=== PATIENT | male | born 1960 | race Caucasian/White ===

== ENCOUNTER 2018-12-01 09:03 | Emergency (ER) | payer OTHER ==
[2018-12-01] MEDS ORDERED: ONDANSETRON 4 MG/2 ML VIAL IVP STA (09:16)
[2018-12-01] MEDS ORDERED: KETOROLAC 30 MG/ML VIAL IVP STA (09:16)
[2018-12-01] MEDS ORDERED: SODIUM CHLORIDE 0.9% 1,000 ML IV ONE ×2 (09:16→11:15)
--- NOTE | 2018-12-01 09:17 | ED Physician Documentation ---
History of Present Illness - Stated complaint Stated Complaint: ABD PX/SIDE PX - Chief complaint Chief Complaint: Abd Pain - Additonal information Additional information: hx from pt 58 male to ED with acute onset severe L flank pain rad to LLQ and scrotum dec urine output nauseated no fever otherwise healthy no pmhx no meds no allergies Review of Systems Constitutional: denies: Fever Cardiac: denies: Chest pain / pressure Respiratory: denies: Dyspnea GI: reports: Abdominal Pain, Nausea : reports: Hesitancy Musculoskeletal: reports: Back pain Endocrine: denies: Easy bruising / bleeding Immunocompromised: denies: Immunocompromised PD PAST MEDICAL HISTORY - Present Medications Home Medications: Ambulatory Orders Medication Instructions Recorded Confirmed Hydrocodone/Acetaminophen 1 each PO Q6H PRN #10 tablet 12/01/18 [Hydrocodon-Acetaminophen 5-325] Ibuprofen [Motrin] 400 mg PO Q6H #30 tablet 12/01/18 Ondansetron Odt [Zofran] 4 mg TL Q6H PRN #10 tablet 12/01/18 Tamsulosin HCl [Flomax] 0.4 mg PO DAILY #7 cap 12/01/18 - Allergies Allergies/Adverse Reactions: Allergies Allergy/AdvReac Type Severity Reaction Status Date / Time No Known Drug Allergies Allergy Verified 12/01/18 09:10 PD ED PE NORMAL - Vitals Vital signs reviewed: Yes - Cardiac Cardiac: RRR - Respiratory Respiratory: No respiratory distress - Abdomen Abdomen: Other (mild TTP L mid abd non peritoneal) - Male Male : Other (no swelling no hernia) - Back Back: No: No CVA TTP (pain in left flank no affected by palpation) - Neuro Neuro: Alert and oriented X 3 Results - Vitals Vitals: Vital Signs - 24 hr 12/01/18 09:08 Temperature 35.6 C L Heart Rate 72 Respiratory 16 Rate Blood Pressure 138/103 H O2 Saturation 100 Oxygen O2 Source Room air - Labs Labs: Laboratory Tests 12/01/18 12/01/18 12/01/18 09:17 09:17 12:50 WBC 5.3 RBC 4.55 L Hgb 14.1 Hct 41.9 L MCV 92.0 MCH 31.0 MCHC 33.8 RDW 13.4 Plt Count 188 MPV 8.0 Neut # (Auto) 3.3 Lymph # (Auto) 1.5 [place] # (Auto) 0.4 Eos # (Auto) 0.1 Baso # (Auto) 0.0 Absolute Nucleated RBC 0.00 Nucleated RBC % 0.0 Sodium 137 Potassium 4.0 Chloride 104 Carbon Dioxide 26 Anion Gap 7.0 BUN 24 H Creatinine 0.9 Estimated GFR (MDRD) 86 L Glucose 133 H Calcium 9.1 Urine Color YELLOW Urine Clarity CLEAR Urine pH 6.0 Ur Specific [place] 1.010 Urine Protein NEGATIVE Urine Glucose (UA) NEGATIVE Urine Ketones NEGATIVE Urine Occult Blood MODERATE H Urine Nitrite NEGATIVE Urine Bilirubin NEGATIVE Urine Urobilinogen 0.2 (NORMAL) Ur Leukocyte Esterase NEGATIVE Urine RBC 0-5 Urine WBC 0-3 Ur Squamous Epith Cells RARE Squamous Urine Bacteria Rare Ur Microscopic Review INDICATED Urine Culture Comments NOT INDICATED Departure - Departure Disposition: 01 Home, Self Care Clinical Impression: Renal colic on left side Condition: Good Instructions: ED Stone Renal W Colic Prescriptions: Hydrocodone/Acetaminophen [Hydrocodon-Acetaminophen 5-325] 1 each PO Q6H PRN #10 tablet PRN Reason: Severe Pain Ibuprofen [Motrin] 400 mg PO Q6H #30 tablet Ondansetron Odt [Zofran] 4 mg TL Q6H PRN #10 tablet PRN Reason: Nausea / Vomiting Tamsulosin HCl [Flomax] 0.4 mg PO DAILY #7 cap Comments: You have a 3 mm kidney stone. It has almost passed from the kidney to the bladder Once it gets into the bladder the pain will stop. There is no infection. So it is OK for you to go home. I have prescribed medications to ease your pain and help relax the ureter so the stone can pass. Please drink plenty of fluids to flush the stone out. Filter the urine and save the stone if you can catch it - your PMD can test it to see if it is a calcium or oxalate stone and you might be able to make diet changes to prevent further stones. Forms: Activity restrictions
[2018-12-01 09:26] LABS: BASOPHILS % (AUTO) 0.5 %; EOSINOPHILS # (AUTO) 0.1 10^3/uL (0.0-0.7); EOSINOPHILS % (AUTO) 1.2 %; HGB - HEMOGLOBIN 14.1 g/dL (14.0-18.0); LYMPHOCYTES # (AUTO) 1.5 10^3/uL (1.5-3.5); MEAN CORPUSCULAR HGB CONC 33.8 g/dL (32.0-36.0); MONOCYTES # (AUTO) 0.4 10^3/uL (0.0-1.0); NEUTROPHILS # (AUTO) 3.3 10^3/uL (1.5-6.6); NEUTROPHILS % (AUTO) 63.3 %; PLT - PLATELET COUNT 188 10^3/uL (130-450); RED BLOOD COUNT 4.55 10^6/uL (4.70-6.10); RED CELL DISTRIBUTION WIDTH 13.4 % (12.0-15.0); WHITE BLOOD COUNT 5.3 x10^3/uL (4.8-10.8)
[2018-12-01 09:33] LABS: CALCIUM 9.1 mg/dL (8.5-10.3); CREATININE 0.9 mg/dL (0.6-1.2)
--- NOTE | 2018-12-01 10:44 | CT Report ---
Reason: L flank pain, concern renal colic Procedure Date: 12/01/2018 Accession Number: [id number] / [id number] Procedure: CT - Abdomen/Pelvis W/O CPT Code: FULL RESULT: EXAM: CT ABDOMEN AND PELVIS (CT KUB) EXAM DATE: 12/01/2018 10:22 AM. CLINICAL HISTORY: Left flank pain, concern for renal colic. COMPARISONS: None. TECHNIQUE: Routine axial helical CT imaging was performed through the abdomen and pelvis without IV contrast. Reconstructions: Coronal and sagittal. In accordance with CT protocol optimization, one or more of the following dose reduction techniques were utilized for this exam: automated exposure control, adjustment of mA and/or KV based on patient size, or use of iterative reconstructive technique. FINDINGS: Lung Bases: Unremarkable. Right Kidney/Ureter: No stones, hydronephrosis, or hydroureter. No perinephric fat stranding. Left Kidney/Ureter: There is subtle left perinephric fat stranding and periureteral fat stranding without overt hydronephrosis in the setting of a distal left ureterovesical junction 3 mm calculus. Other Solid Organs: Noncontrast images of the solid organs are grossly unremarkable. Gallbladder/Bile Ducts: Unremarkable. Peritoneal Cavity: No free fluid, free air or leticia adenopathy. Bowel is grossly unremarkable. Pelvic Organs: No bladder stones or wall thickening. Noncontrast images of the visualized pelvic organs are unremarkable. Vasculature: Unremarkable. Other: None. IMPRESSION: Left ureterovesical junction calculus, 3 mm size. No leticia upstream hydronephrosis. RADIA The above findings of 3 mm left UVJ calculus were discussed with Dahlia Kent by Dr. Stu Brar at 10:42 hrs on 12/01/2018.
[2018-12-01 13:22] LABS: BILIRUBIN,URINE NEGATIVE (NEGATIVE); GLUCOSE, URINE (UA) NEGATIVE (NEGATIVE); KETONES,URINE (UA) NEGATIVE (NEGATIVE); LEUKOCYTE ESTERASE, URINE NEGATIVE (NEGATIVE); NITRITE,URINE NEGATIVE (NEGATIVE); OCCULT BLOOD,URINE MODERATE (NEGATIVE); PROTEIN,URINE NEGATIVE (NEGATIVE); UROBILINOGEN,URINE 0.2 (NORMAL) E.U./dL (NORMAL)
[2018-12-01 13:31] LABS: CLARITY,URINE CLEAR (CLEAR)
[2018-12-01 13:32] LABS: BACTERIA,URINE Rare /HPF (None Seen); RBC,URINE 0-5 /HPF (0-5); SQUAMOUS EPITHELIAL CELL,UR RARE Squamous (<= Few)
[2018-12-01 14:02] VITALS: BP 114/78
== END 2018-12-01 14:02 | disposition home or self-care (01) ==
LOC: ED 09:03
DX: N20.1 Calculus of ureter (principal)
CPT/HCPCS: 36415; 74176; 80048; 81001; 81003; 85025; 87086; 96361; 96374; 99283; 99284

== ENCOUNTER 2018-12-10 10:56 | Emergency (ER) | payer OTHER ==
[2018-12-10] MEDS ORDERED: SODIUM CHLORIDE 0.9% 1,000 ML IV ONE (11:20)
[2018-12-10] MEDS ORDERED: HYDROmorphone 1 MG/ML CARPUJECT IVP STA (11:20)
[2018-12-10] MEDS ORDERED: KETOROLAC 30 MG/ML VIAL IVP STA (11:20)
[2018-12-10] MEDS ORDERED: ONDANSETRON 4 MG/2 ML VIAL IVP STA (11:20)
[2018-12-10 11:28] LABS: BILIRUBIN,URINE NEGATIVE (NEGATIVE); GLUCOSE, URINE (UA) NEGATIVE (NEGATIVE); KETONES,URINE (UA) NEGATIVE (NEGATIVE); LEUKOCYTE ESTERASE, URINE TRACE (NEGATIVE); NITRITE,URINE NEGATIVE (NEGATIVE); OCCULT BLOOD,URINE SMALL (NEGATIVE); PROTEIN,URINE NEGATIVE (NEGATIVE); UROBILINOGEN,URINE 0.2 (NORMAL) E.U./dL (NORMAL)
--- NOTE | 2018-12-10 11:29 | ED Physician Documentation ---
History of Present Illness - Stated complaint Stated Complaint: SIDE PX - Chief complaint Chief Complaint: Abd Pain - Additonal information Additional information: hx from pt 58 y/o m seen by me about a week ago for L renal colic CT showed a distal 3 mm stone with hydro no UTI was dced with symptomatic meds states was much improved for a week then last night the pain returned and was worse not relieved with PO meds no fever chills making urine Review of Systems Constitutional: denies: Fever, Chills Cardiac: denies: Chest pain / pressure Respiratory: denies: Dyspnea GI: reports: Abdominal Pain. denies: Nausea, Vomiting : denies: Dysuria, Hematuria Musculoskeletal: reports: Back pain Endocrine: denies: Easy bruising / bleeding Immunocompromised: denies: Immunocompromised PD PAST MEDICAL HISTORY - Past Surgical History Past Surgical History: No - Present Medications Home Medications: Ambulatory Orders Medication Instructions Recorded Confirmed Hydrocodone/Acetaminophen 1 each PO Q6H PRN #10 tablet 12/01/18 12/10/18 [Hydrocodon-Acetaminophen 5-325] Ibuprofen [Motrin] 400 mg PO Q6H #30 tablet 12/01/18 12/10/18 Ondansetron Odt [Zofran] 4 mg TL Q6H PRN #10 tablet 12/01/18 12/10/18 Tamsulosin HCl [Flomax] 0.4 mg PO DAILY #7 cap 12/01/18 12/10/18 Ibuprofen [Motrin] 400 mg PO Q6H PRN #30 tablet 12/10/18 Ondansetron Odt [Zofran] 4 mg TL Q6H PRN #10 tablet 12/10/18 Tamsulosin HCl [Flomax] 0.4 mg PO DAILY #7 cap 12/10/18 oxyCODONE [Roxicodone] 5 mg PO Q4-6H PRN #20 tablet 12/10/18 - Allergies Allergies/Adverse Reactions: Allergies Allergy/AdvReac Type Severity Reaction Status Date / Time No Known Drug Allergies Allergy Verified 12/10/18 11:04 - Social History Does the pt smoke?: No Smoking Status: Never smoker Does the pt drink ETOH?: Yes Does the pt have substance abuse?: No - Immunizations Immunizations are current?: Yes - POLST Patient has POLST: No PD ED PE NORMAL - Vitals Vital signs reviewed: Yes - General General: Other (cureld in position moaning) - Neck Neck: Supple, no meningeal sign - Cardiac Cardiac: RRR - Respiratory Respiratory: No respiratory distress, Clear bilaterally - Abdomen Abdomen: Other (left sided TTP non peritonal) - Back Back: No: No CVA TTP (+ L CVA TTP) - Derm Derm: Normal color - Neuro Neuro: Alert and oriented X 3 Results - Vitals Vitals: Vital Signs - 24 hr 12/10/18 11:02 Temperature 36.6 C Heart Rate 70 Respiratory 18 Rate Blood Pressure 116/81 H O2 Saturation 100 Oxygen O2 Source Room air - Labs Labs: Laboratory Tests 12/10/18 11:10 Urine Color YELLOW Urine Clarity HAZY Urine pH 6.0 Ur Specific [place] 1.010 Urine Protein NEGATIVE Urine Glucose (UA) NEGATIVE Urine Ketones NEGATIVE Urine Occult Blood SMALL H Urine Nitrite NEGATIVE Urine Bilirubin NEGATIVE Urine Urobilinogen 0.2 (NORMAL) Ur Leukocyte Esterase TRACE H Urine RBC None Seen Urine WBC 4-5 Ur Squamous Epith Cells NONE SEEN Urine Bacteria None Seen Ur Microscopic Review INDICATED Urine Culture Comments INDICATED - Rads (name of study) CT AP Radiology: See rad report (stone has not sig moved, has become 5 mm now, increasing hydro) Departure - Departure Disposition: 01 Home, Self Care Clinical Impression: Renal colic on left side Condition: Good Instructions: ED Stone Renal W Colic Prescriptions: Ibuprofen [Motrin] 400 mg PO Q6H PRN #30 tablet PRN Reason: Pain Ondansetron Odt [Zofran] 4 mg TL Q6H PRN #10 tablet PRN Reason: Nausea / Vomiting oxyCODONE [Roxicodone] 5 mg PO Q4-6H PRN #20 tablet PRN Reason: Severe Pain Tamsulosin HCl [Flomax] 0.4 mg PO DAILY #7 cap Comments: The stone has not passed yet. In fact it got bigger and is now 5 mm. There is no infection in the urine and we were able to get the pain under control with IV medications So it is OK for you to go home I have prescribed a stronger pain medication this time - oxycodone instead of hydrocodone. And I spoke to [facility] and a referral has been submitted for you to see urology in [place] - you need to call tomorrow morning to schedule If the pain becomes severe again and is not controlled with oral medication - or if you develop a fever - come back to the ER - we are always open and here to help you. Forms: Activity restrictions
[2018-12-10 11:31] LABS: CLARITY,URINE HAZY (CLEAR)
[2018-12-10 11:37] LABS: BACTERIA,URINE None Seen /HPF (None Seen); RBC,URINE None Seen /HPF (0-5); SQUAMOUS EPITHELIAL CELL,UR NONE SEEN (<= Few)
--- NOTE | 2018-12-10 12:32 | CT Report ---
Reason: L renal colic, prior stone near UVJ, now flank ami Procedure Date: 12/10/2018 Accession Number: [id number] / [id number] Procedure: CT - Abdomen/Pelvis W/O CPT Code: FULL RESULT: EXAM: CT ABDOMEN AND PELVIS (CT KUB) EXAM DATE: 12/10/2018 11:42 AM. CLINICAL HISTORY: Calculus of kidney. COMPARISONS: ABDOMEN/PELVIS W/O 12/01/2018 10:12 AM. TECHNIQUE: Routine axial helical CT imaging was performed through the abdomen and pelvis without IV contrast. Reconstructions: Coronal and sagittal. In accordance with CT protocol optimization, one or more of the following dose reduction techniques were utilized for this exam: automated exposure control, adjustment of mA and/or KV based on patient size, or use of iterative reconstructive technique. FINDINGS: Lung Bases: Minor left basilar atelectasis. Right Kidney/Ureter: No stones, hydronephrosis, or hydroureter. No perinephric fat stranding. Left Kidney/Ureter: There has been slight interval worsening and moderate left-sided hydronephrosis. A previous obstructing stone demonstrates minimal migration downstream now seen at the ureterovesical junction. The stone appears slightly more prominent and measures 5 mm, previously 3 mm. No additional kidney stones identified. Other Solid Organs: Noncontrast images of the solid organs are grossly unremarkable. Gallbladder/Bile Ducts: Unremarkable. Peritoneal Cavity: No free fluid, free air or leticia adenopathy. Bowel is grossly unremarkable. The appendix is normal. Pelvic Organs: No bladder stones or wall thickening. Noncontrast images of the visualized pelvic organs are unremarkable. Vasculature: Unremarkable. Other: None. IMPRESSION: Minimal downstream migration of previous obstructing stone now seen at the ureterovesical junction with slightly worsening moderate hydronephrosis. The stone also appears increased in size now measuring up to 5 mm. RADIA
[2018-12-10 14:31] VITALS: BP 113/71
== END 2018-12-10 14:36 | disposition home or self-care (01) ==
LOC: ED 10:56
DX: N13.2 Hydronephrosis with renal and ureteral calculous obstruction (principal)
CPT/HCPCS: 74176; 81001; 87086; 96361; 96374; 99283; 99284; J1170; 81003

== ENCOUNTER 2018-12-18 08:00 | Outpatient (CLI) | payer OTHER | END 2018-12-18 23:59 | disposition home or self-care (01) | LOC: LAB.R 08:00 | PROVIDERS: ATTEND Physician Assistant | DX: N20.0 Calculus of kidney (principal) | CPT/HCPCS: 82365 ==

== ENCOUNTER 2018-12-29 08:00 | Outpatient (CLI) | payer OTHER ==
[2018-12-29 19:32] LABS: CHOL/HDL RATIO 2.4 (<5.0); CHOLESTEROL 189 mg/dL; HDL CHOLESTEROL 79 mg/dL
[2018-12-29 20:31] LABS: HB2 TOTAL 15.8 g/dL; HEMOGLOBIN A1C 0.55 g/dL; HEMOGLOBIN A1C % 5.3 % (4.6-6.2)
[2018-12-29 20:39] LABS: LDL CHOLESTEROL,DIRECT 115 mg/dL; LDLD/HDL RATIO 1.5 (<3.6)
== END 2018-12-29 23:59 | disposition home or self-care (01) ==
LOC: LAB.WCP 08:00
PROVIDERS: ATTEND Physician Assistant
DX: Z13.220 Encounter for screening for lipoid disorders (principal); Z13.1 Encounter for screening for diabetes mellitus; Z12.5 Encounter for screening for malignant neoplasm of prostate; Z13.29 Encounter for screening for other suspected endocrine disorder
CPT/HCPCS: 36415; 80061; 83036; 83721; 84153; 84443

== ENCOUNTER 2019-01-17 14:48 | Outpatient (CLI) | payer OTHER ==
--- NOTE | 2019-01-17 17:44 | CARDIAC PROCEDURE NOTE ---
DATE OF SERVICE: 01/17/2019 Physician: Sury Brown MD, [facility] INDICATION: Chest pain. CARDIAC RISK FACTORS: Male gender. PROCEDURE: After signing informed consent, the patient performed exercise on a [place] protocol treadmill stress test. The patient exercised for 9 minutes and 25 seconds, achieved a peak heart rate of 145 (90% predicted maximum heart rate for age) and 10.8 METS. The patient had mild shortness of breath at peak. He developed no chest pain. RESTING HEART RATE: 55. Peak heart rate: 145 (90% PMHR). RESTING BLOOD PRESSURE: 144/90. Peak blood pressure: 194/60. RESTING EKG: Normal sinus rhythm, LVH voltage. EKG AT PEAK: No ischemic changes by EKG criteria on this treadmill stress test. SUMMARY 1. LVH is seen on EKG, and the patient had hypertension throughout this test. 2. No ischemic changes by EKG criteria, during treadmill exercise, at an adequate achieved heart rate. 3. No imaging study was ordered with this test. cc: Patti Diaz PA-C TD: 01/17/2019 17:24 [email or web address]
== END 2019-01-17 14:49 | disposition home or self-care (01) ==
LOC: DI 14:48
PROVIDERS: ATTEND Physician Assistant
DX: R07.9 Chest pain, unspecified (principal); I51.7 Cardiomegaly; I10 Essential (primary) hypertension
CPT/HCPCS: 93016; 93017; 93018

== ENCOUNTER 2019-02-09 13:02 | Outpatient (CLI) | payer OTHER | END 2019-02-09 13:03 | disposition home or self-care (01) | LOC: DI 13:02 | PROVIDERS: ATTEND Physician Assistant | DX: R07.9 Chest pain, unspecified (principal); I07.1 Rheumatic tricuspid insufficiency | CPT/HCPCS: 93306 ==

== ENCOUNTER 2021-06-08 13:56 | Outpatient (CLI) | payer OTHER ==
[2021-06-08 17:50] LABS: BASOPHILS % (AUTO) 0.3 %; EOSINOPHILS # (AUTO) 0.1 10^3/uL (0.0-0.7); EOSINOPHILS % (AUTO) 0.8 %; HCT - HEMATOCRIT 45.2 % (42.0-52.0); HGB - HEMOGLOBIN 14.6 g/dL (14.0-18.0); LYMPHOCYTES # (AUTO) 2.1 10^3/uL (1.5-3.5); LYMPHOCYTES % (AUTO) 27.5 %; MEAN CORPUSCULAR HEMOGLOBIN 30.7 pg (27.0-31.0); MEAN CORPUSCULAR HGB CONC 32.3 g/dL (32.0-36.0); MEAN PLATELET VOLUME 10.3 fL (7.4-11.4); MONOCYTES # (AUTO) 0.7 10^3/uL (0.0-1.0); MONOCYTES % (AUTO) 8.6 %; NEUTROPHILS # (AUTO) 4.8 10^3/uL (1.5-6.6); NEUTROPHILS % (AUTO) 62.7 %; PLT - PLATELET COUNT 222 10^3/uL (130-450); RED BLOOD COUNT 4.76 10^6/uL (4.70-6.10); RED CELL DISTRIBUTION WIDTH 13.1 % (12.0-15.0); WHITE BLOOD COUNT 7.7 x10^3/uL (4.8-10.8)
[2021-06-08 18:16] LABS: ALBUMIN 4.2 g/dL (3.2-5.5); ALBUMIN/GLOBULIN RATIO 1.6 (1.0-2.2); BILIRUBIN,TOTAL 0.8 mg/dL (0.2-1.0); CALCIUM 8.8 mg/dL (8.5-10.3); CREATININE 0.8 mg/dL (0.6-1.2); POTASSIUM 4.1 mmol/L (3.5-5.0); TOTAL PROTEIN 6.9 g/dL (6.7-8.2)
== END 2021-06-08 23:59 | disposition home or self-care (01) ==
LOC: LAB.N 13:56
PROVIDERS: ATTEND Physician Assistant Medical
DX: K52.9 Noninfective gastroenteritis and colitis, unspecified (principal)
CPT/HCPCS: 36415; 80053; 83690; 85025

== ENCOUNTER 2023-03-10 09:05 | Outpatient (CLI) | payer OTHER ==
[2023-03-10 11:59] LABS: BASOPHILS % (AUTO) 0.5 %; EOSINOPHILS % (AUTO) 0.5 %; HCT - HEMATOCRIT 44.5 % (42.0-52.0); HGB - HEMOGLOBIN 14.6 g/dL (14.0-18.0); LYMPHOCYTES # (AUTO) 1.3 10^3/uL (1.5-3.5); LYMPHOCYTES % (AUTO) 22.6 %; MEAN CORPUSCULAR HEMOGLOBIN 31.3 pg (27.0-31.0); MEAN CORPUSCULAR HGB CONC 32.8 g/dL (32.0-36.0); MEAN CORPUSCULAR VOLUME 95.3 fL (80.0-94.0); MEAN PLATELET VOLUME 10.7 fL (7.4-11.4); MONOCYTES # (AUTO) 0.4 10^3/uL (0.0-1.0); MONOCYTES % (AUTO) 6.9 %; NEUTROPHILS % (AUTO) 69.3 %; PLT - PLATELET COUNT 171 10^3/uL (130-450); RED BLOOD COUNT 4.67 10^6/uL (4.70-6.10); RED CELL DISTRIBUTION WIDTH 13.1 % (12.0-15.0); WHITE BLOOD COUNT 5.8 x10^3/uL (4.8-10.8)
[2023-03-10 12:18] LABS: ALBUMIN 4.4 g/dL (3.2-5.5); ALBUMIN/GLOBULIN RATIO 1.7 (1.0-2.2); ALKALINE PHOSPHATASE 55 IU/L (42-121); ALT ALANINE AMINOTRANSFERASE 25 IU/L (10-60); AST ASPARTATE AMINOTRANSFERASE 22 IU/L (10-42); BILIRUBIN,TOTAL 0.8 mg/dL (0.2-1.0); BUN - BLOOD UREA NITROGEN 25 mg/dL (6-20); CALCIUM 9.6 mg/dL (8.5-10.3); CARBON DIOXIDE - CO2 30 mmol/L (21-32); CHLORIDE 106 mmol/L (101-111); CHOL/HDL RATIO 2.1 (<5.0); CHOLESTEROL 207 mg/dL; CREATININE 0.9 mg/dL (0.6-1.2); GFR - MDRD 85 (>89); GLUCOSE 96 mg/dL (70-100); HDL CHOLESTEROL 98 mg/dL; POTASSIUM 4.8 mmol/L (3.5-5.0); SODIUM 139 mmol/L (135-145); TRIGLYCERIDES 20 mg/dL
[2023-03-10 12:26] LABS: THYROID STIMULATING HORMONE 1.15 uIU/mL (0.34-5.60)
== END 2023-03-10 09:06 | disposition home or self-care (01) ==
LOC: LAB.N 09:05
PROVIDERS: ATTEND Physician Assistant
DX: G44.89 Other headache syndrome (principal); Z13.220 Encounter for screening for lipoid disorders; Z12.5 Encounter for screening for malignant neoplasm of prostate
CPT/HCPCS: 36415; 80053; 80061; 83721; 84153; 84443; 85025; 86140

== ENCOUNTER 2023-03-25 07:11 | Outpatient (CLI) | payer OTHER ==
[~2023-03-25 07:11] MED LIST: GADOBUTROL 7.5 MMOL/7.5 ML VIAL ONE
[2023-03-25] MEDS ORDERED: GADOBUTROL 7.5 MMOL/7.5 ML VIAL IVP ONE (08:10)
--- NOTE | 2023-03-25 08:31 | MRI Report ---
PROCEDURE: BRAIN W/WO INDICATIONS: HEADACHE CONTRAST: GADAVIST 6.6 ML TECHNIQUE: Noncontrast axial T1 spin echo, axial T2 fast spin echo, sagittal and axial FLAIR, coronal T2 fast sp in echo, axial gradient echo, axial diffusion and ADC through the brain. After the administration of contrast, axial and coronal T1 spin echo with fat saturation through the brain. COMPARISON: None. FINDINGS: Image quality: Excellent. CSF spaces: Basal cisterns are patent. No extra-axial fluid collections. Ventricles are normal in size and shape. Brain: No midline shift. No intracranial bleeds or masses. No abnormal intracranial enhancement. There is cerebral volume loss for age. The brainstem appears normal. Diffusion-weighted images demo nstrate no acute ischemic insults. No chronic ischemic insults. Normal intravascular flow voids are present. Skull and face: Calvarial marrow is normal in signal. Orbits appear normal. Sinuses: There is moderate right and mild left maxillary sinus mucosal thickening. Mild bilateral eth moid sinus mucosal thickening. Mastoids are clear. IMPRESSION: 1. No acute process. No recent infarct. 2. Mild diffuse age-appropriate cerebral volume loss. 3. Sinus disease. Reviewed by: Wild Hinkle MD on 03/25/2023 8:29 AM PDT Approved by: Wild Hinkle MD on 03/25/2023 8:29 AM PDT Station ID: [id number]
== END 2023-03-25 07:12 | disposition home or self-care (01) ==
LOC: DI 07:11
PROVIDERS: ATTEND Physician Assistant
DX: J32.9 Chronic sinusitis, unspecified (principal); G44.89 Other headache syndrome
CPT/HCPCS: 70553; A9585

== ENCOUNTER 2024-06-06 09:30 | Outpatient (CLI) | payer OTHER ==
--- NOTE | 2024-06-06 14:08 | XRAY Report ---
PROCEDURE: Shoulder 2+V LT INDICATIONS: LEFT ROTATOR CUFF SHOULDER STRAIN TECHNIQUE: 3 views of the shoulder were acquired. COMPARISON: None. FINDINGS: Bones: No acute fractures or dislocations. No suspicious bony lesions. Visualized ribs appear inta ct. Mild to moderate acromioclavicular joint degenerative. Soft tissues: No suspicious soft tissue calcifications. The visualized lungs are within normal limi ts. IMPRESSION: Mild to moderate acromioclavicular joint osteoarthrosis. Reviewed by: Rony Olivas MD on 06/06/2024 2:07 PM PDT Approved by: Rony Olivas MD on 06/06/2024 2:07 PM PDT Station ID: [id number]
== END 2024-06-06 09:31 | disposition home or self-care (01) ==
LOC: DI 09:30
PROVIDERS: ATTEND Family Medicine
DX: S46.012A Strain of muscle(s) and tendon(s) of the rotator cuff of left shoulder, initial encounter (principal); M19.012 Primary osteoarthritis, left shoulder

== ENCOUNTER 2024-07-18 09:31 | Outpatient (CLI) | payer OTHER ==
--- NOTE | 2024-07-18 13:14 | XRAY Report ---
PROCEDURE: Shoulder 1V LT INDICATIONS: STRAIN MUSCLE/TENDON OF RC LEFT SHOULDER TECHNIQUE: 1 views of the shoulder were acquired. COMPARISON: 06/06/2024 FINDINGS: Bones: Single axillary view of the left shoulder demonstrates normal alignment. No acute fractures s een. Soft tissues: No suspicious soft tissue calcifications. IMPRESSION: Single axillary view of the left shoulder without acute osseous abnormalities or malalignment. Reviewed by: Junaid Mejias MD on 07/18/2024 1:13 PM PDT Approved by: Junaid Mejias MD on 07/18/2024 1:13 PM PDT Station ID: [id number]
== END 2024-07-18 09:32 | disposition home or self-care (01) ==
LOC: DI 09:31
PROVIDERS: ATTEND Physician Assistant Surgical
DX: S46.012A Strain of muscle(s) and tendon(s) of the rotator cuff of left shoulder, initial encounter (principal)